=== PATIENT | female | born 1935 | race Caucasian/White ===

== ENCOUNTER → 2021-11-25 15:07 | Outpatient (CLI) | payer MEDICARE, MEDICAID, SELFPAY ==
--- NOTE | 2021-11-25 | DI.CT.S_ITS ---
PROCEDURE: CT SINUS SCREEN WO CON INDICATIONS: Chronic pansinusitis TECHNIQUE: Noncontrast 3.0 mm axial images acquired from the frontal sinuses to the mid-sella, with coronal and sagittal reformats. For radiation dose reduction, the following was used: automated exposure control, adjustment of mA and/or kV according to patient size. COMPARISON: Outside Film, CT, CT HEAD WITHOUT CONTRAST, 05/01/2021, 17:27. FINDINGS: Image quality: Excellent. Maxillary Sinuses: There is near complete opacification of the maxillary sinuses. There is demineralization of the medial yip of maxillary sinuses. Ethmoid Air Cells: Moderate mucosal thickening is seen within the ethmoid air cells. The ethmoid air cell septations appear demineralized. Sphenoid Sinuses: Moderate mucosal thickening is seen within the sphenoid sinuses. No significant bony abnormality is seen. Frontal Sinuses: Mild mucosal thickening is seen within the frontal sinuses. The sinuses are poorly developed. Ostiomeatal Complexes: Ostiomeatal complexes are patent. No Naa cells. Miscellaneous: Visualized intra-orbital contents are normal. There is a right-sided janette bullosa, which demonstrates least moderate mucosal thickening. The right middle turbinate appears demineralized. There is soft tissue seen within the right nasal cavity. Nasal polyps are suspected. There is mild rightward nasal septal deviation. IMPRESSION: Widespread paranasal sinus disease is seen, which is worst within the maxillary sinuses. Areas of bony demineralization are seen, which are consistent with chronic sinusitis. Dictated by: Kapil Mosquera M.D. on 11/25/2021 at 14:31 Approved by: Kapil Mosquera M.D. on 11/25/2021 at 14:33
== END ==
PROVIDERS: PCP Physician Assistant; Referring Provider Otolaryngology; Visit Provider Otolaryngology
DX: J32.4 Chronic pansinusitis (principal)
CPT/HCPCS: 70486